=== PATIENT | male | born 1985 | race Caucasian/White ===

== ENCOUNTER → 2019-02-05 | Outpatient (CLI) | payer OTHER ==
--- NOTE | 2019-02-05 17:56 | REP ---
Clinical: Trauma. Contusion. Technique: AP, lateral, bilateral oblique views of the left fourth digit. Findings: No acute fracture dislocation. Skeletal structures, joint spaces, and surrounding soft tissues appear normal. Impression: No acute fracture or dislocation. Electronically Signed by Samm Khan MD 02/05/2019 05:48 P
== END ==
LOC: M LRY 16:52
PROVIDERS: ATTEND Physician Assistant Medical
DX: S60.042A Contusion of left ring finger without damage to nail, initial encounter (principal); W18.30XA Fall on same level, unspecified, initial encounter; Y92.009 Unspecified place in unspecified non-institutional (private) residence as the place of occurrence of the external cause

== ENCOUNTER 2021-08-14 14:22 | Emergency (ER) | payer OTHER ==
[~2021-08-14] VITALS: Ht 177.8 cm; Wt 90.9 kg
[2021-08-14] MEDS ORDERED: ACET32TAB PO (14:52)
[2021-08-14] MEDS ORDERED: ALBUTEROL 90 MCG/ACT 8GM HFA INHALER INH ONE (16:40)
[2021-08-14 17:41] LABS: BASO % 0.3 % (0.0-1.0); EOS # 0.1 10^3/uL (0.0-0.5); EOS % 0.5 % (0.0-3.0); HEMATOCRIT 42.1 % (42.0-52.0); LYMPH # 2.2 10^3/uL (1.5-5.0); LYMPH % 22.4 % (24.0-44.0); MEAN CORPUSCULAR HEMOGLOBIN 30.5 pg (27.0-33.0); MEAN CORPUSCULAR HGB CONC 33.3 g/dl (32.0-36.5); MEAN CORPUSCULAR VOLUME 91.7 fl (80.0-96.0); MONO # 0.8 10^3/uL (0.0-0.8); MONO % 8.3 % (2.0-8.0); NEUTROPHILS # 6.8 10^3/uL (1.5-8.5); NEUTROPHILS % 68.1 % (36.0-66.0); PLATELET COUNT, AUTOMATED 169 10^3/uL (150-450); RED BLOOD COUNT 4.59 10^6/uL (4.30-6.10)
[2021-08-14 17:57] LABS: BLOOD UREA NITROGEN 11 MG/DL (7-18); CALCIUM LEVEL 8.1 MG/DL (8.5-10.1); CARBON DIOXIDE LEVEL 26 MEQ/L (21-32); CHLORIDE LEVEL 111 MEQ/L (98-107); CREATININE FOR GFR 1.03 MG/DL (0.70-1.30); GLOMERULAR FILTRATION RATE > 60.0 (>60); GLUCOSE, FASTING 104 MG/DL (70-100); POTASSIUM SERUM 3.9 MEQ/L (3.5-5.1); SODIUM LEVEL 143 MEQ/L (136-145)
[2021-08-14] MEDS ORDERED: PROAAER10 INH ×2 (18:30→19:12)
[2021-08-14 18:38] VITALS: BP 129/76
== END 2021-08-14 18:48 | disposition home or self-care (01) ==
LOC: M ED 14:22
DX: R52 Pain, unspecified (principal); R06.02 Shortness of breath; U07.1 COVID-19; Z88.0 Allergy status to penicillin; F17.210 Nicotine dependence, cigarettes, uncomplicated

== ENCOUNTER → 2022-01-03 | Outpatient (CLI) | payer OTHER ==
[~2022-01-03] MED LIST: ACET32TAB PO; PROAAER10 INH
== END ==
LOC: M RAD 12:37
PROVIDERS: ATTEND Physician Assistant
DX: G43.111 Migraine with aura, intractable, with status migrainosus (principal)

== ENCOUNTER 2022-05-20 23:16 | Emergency (ER) | payer OTHER ==
[~2022-05-20] VITALS: Ht 175.3 cm; Wt 96.9 kg
[2022-05-20] MEDS ORDERED: ACETAMINOPHEN 325 MG TAB PO ONE (23:25)
[2022-05-21] MEDS ORDERED: NS IV ONE (02:45)
[2022-05-21 03:03] LABS: BASO # 0.1 10^3/uL (0.0-0.2); BASO % 0.5 % (0.0-1.0); EOS # 0.1 10^3/uL (0.0-0.5); HEMATOCRIT 39.3 % (42.0-52.0); HEMOGLOBIN 13.4 g/dl (13.5-17.5); LYMPH # 2.5 10^3/uL (1.5-5.0); LYMPH % 20.2 % (24.0-44.0); MEAN CORPUSCULAR HEMOGLOBIN 31.6 pg (27.0-33.0); MEAN CORPUSCULAR HGB CONC 34.1 g/dl (32.0-36.5); MEAN CORPUSCULAR VOLUME 92.7 fl (80.0-96.0); MONO # 1.1 10^3/uL (0.0-0.8); MONO % 9.1 % (2.0-8.0); NEUTROPHILS # 8.6 10^3/uL (1.5-8.5); NEUTROPHILS % 68.8 % (36.0-66.0); PLATELET COUNT, AUTOMATED 208 10^3/uL (150-450); RED BLOOD COUNT 4.24 10^6/uL (4.30-6.10); WHITE BLOOD COUNT 12.5 10^3/uL (4.0-10.0)
[2022-05-21 03:34] LABS: MONO SCRN NEGATIVE (NEGATIVE)
[2022-05-21 03:35] LABS: ERYTHROCYTE SEDIMENTATION RATE 10 mm/hr (0-15)
[2022-05-21 03:49] LABS: ALBUMIN 3.4 GM/DL (3.2-5.2); ALT/SGPT 19 U/L (12-78); BILIRUBIN,TOTAL 0.4 MG/DL (0.2-1.0); BLOOD UREA NITROGEN 17 MG/DL (7-18); C REACTIVE PROTEIN QUANTITATIV 1.86 MG/DL (0.00-0.30); CALCIUM LEVEL 8.7 MG/DL (8.5-10.1); CARBON DIOXIDE LEVEL 19 MEQ/L (21-32); CHLORIDE LEVEL 114 MEQ/L (98-107); CREATININE FOR GFR 1.15 MG/DL (0.70-1.30); GLOMERULAR FILTRATION RATE > 60.0 (>60); GLUCOSE, FASTING 123 MG/DL (70-100); MAGNESIUM LEVEL 1.9 MG/DL (1.8-2.4); POTASSIUM SERUM 3.9 MEQ/L (3.5-5.1); SODIUM LEVEL 140 MEQ/L (136-145); TOTAL PROTEIN 6.4 GM/DL (6.4-8.2)
[2022-05-21] MEDS ORDERED: ACETAMINOPHEN TAB 650MG DOSE (2X325MG) PO ONE (06:50)
[2022-05-21 08:34] LABS: GC DNA AMPLIFICATION NEGATIVE (NEGATIVE)
[2022-05-21] MEDS ORDERED: DOXYCYCLINE HYCLATE 100MG TABLET PO ONE (08:35)
[2022-05-21] MEDS ORDERED: cefTRIAXone SOD 500 MG in D5W MINI-BAG PLUS 50 ML IV ONE (08:35)
[2022-05-21] MEDS ORDERED: DOXY-443 PO (08:40)
[2022-05-21 10:26] VITALS: BP 129/72
[2022-05-23 23:07] LABS: MUMPS VIRUS IgM ANTIBODY <0.80 AU (0.00-0.79)
== END 2022-05-21 10:28 | disposition home or self-care (01) ==
LOC: M ED 23:16
DX: R50.9 Fever, unspecified (principal); M79.10 Myalgia, unspecified site; R59.9 Enlarged lymph nodes, unspecified; N45.2 Orchitis; Z88.0 Allergy status to penicillin
CPT/HCPCS: 71045; 74176; 76870; 80053; 81002; 82550; 83735; 85025; 85652; 86140; 86308; 86735; 86780; 87040; 87486; 87581; 87633; 87661; 87798; 87810; 87850; 87880; 93976; 96361; 96365; 99284; J0696